=== PATIENT | male | born 1950 | race Caucasian/White ===

== ENCOUNTER 2017-09-15 18:50 | Outpatient (CLI) | payer MEDICARE, OTHER ==
--- NOTE | 2017-09-16 14:34 | Ultrasound Report ---
Procedure Date: 09/15/2017 Accession Number: [id number] / [id number] Procedure: US - Abdomen Limited CPT Code: FULL RESULT: EXAM: Abdomen Limited DATE: 09/15/2017 7:33 PM CLINICAL HISTORY: LUQ BULGE, HERNIA TECHNIQUE: Real time scanning of the left mid abdomen was saved static images reviewed. COMPARISON: None FINDINGS: No hernia is seen. Left kidney measures 11.5 cm in length and appears normal. Spleen measures 7.6 cm longitudinally. No cystic or solid mass or abnormal fluid collection is seen to account for the clinically apparent bulge. IMPRESSION: Negative limited abdomen ultrasound of the left mid abdomen. No hernia is seen.
== END 2017-09-15 18:51 | disposition home or self-care (01) ==
LOC: DI 18:50
PROVIDERS: ATTEND Physician Assistant
DX: R19.02 Left upper quadrant abdominal swelling, mass and lump (principal)
CPT/HCPCS: 76705

== ENCOUNTER 2017-11-11 07:56 | Outpatient (CLI) | payer MEDICARE, OTHER ==
[2017-11-11] MEDS ORDERED: IOPAMIDOL-300 50 ML VIAL ONE (08:05)
[2017-11-11] MEDS ORDERED: IOPAMIDOL-300 100 ML VIAL ONE (08:05)
[2017-11-11 08:20] LABS: CREATININE 0.9 mg/dL (0.6-1.2)
[2017-11-11] MEDS ORDERED: IOPAMIDOL-300 50 ML VIAL PO ONE (09:55)
[2017-11-11] MEDS ORDERED: IOPAMIDOL-300 100 ML VIAL IVP ONE (09:55)
--- NOTE | 2017-11-11 10:43 | CT Report ---
Procedure Date: 11/11/2017 Accession Number: [id number] / [id number] Procedure: CT - Abdomen/Pelvis W/ CPT Code: FULL RESULT: EXAM: CT ABDOMEN AND PELVIS EXAM DATE: 11/11/2017 09:27 AM. CLINICAL HISTORY: LLQ ABDOMINAL SWELLING, MASS, OR LUMP. COMPARISONS: None. TECHNIQUE: Routine helical CT imaging was performed through the abdomen and pelvis. IV contrast: ISOVUE 300 100mL. Enteric contrast: Positive. Reconstructions: Coronal and sagittal. In accordance with CT protocol optimization, one or more of the following dose reduction techniques were utilized for this exam: automated exposure control, adjustment of mA and/or KV based on patient size, or use of iterative reconstructive technique. FINDINGS: Lung Bases: Unremarkable. Liver: Discrete 12 mm hepatic segment 2 hypodensity (3/14), suggestive of cyst. No other hepatic lesions. Gallbladder/Bile Ducts: Unremarkable. Spleen: Normal. Pancreas: Normal. Adrenal Glands: Normal. Kidneys: No hydronephrosis. Small right renal cortical hypodensity, statistically cyst. There is a nonobstructing 5 mm midpole left renal calculus. Peritoneal Cavity/Bowel: Normal. No free fluid, free air or adenopathy. No masses or acute inflammatory process. The appendix is well visualized and normal. Pelvic Organs: Normal. The bladder and visualized pelvic organs are within normal limits. Vasculature: No aneurysms or other significant abnormality. 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 No acute osseous abnormality or suspicious bony lesion. Other: None. IMPRESSION: 1. No convincing acute abdominopelvic findings. 2. Other findings as noted above. [facility]
== END 2017-11-11 07:57 | disposition home or self-care (01) ==
LOC: LAB 07:56 → DI 07:57
PROVIDERS: ATTEND Internal Medicine Gastroenterology
DX: R19.04 Left lower quadrant abdominal swelling, mass and lump (principal); I11.0 Hypertensive heart disease with heart failure; I50.9 Heart failure, unspecified; E11.9 Type 2 diabetes mellitus without complications; N28.9 Disorder of kidney and ureter, unspecified
CPT/HCPCS: 36415; 74177; 82565; Q9967